=== PATIENT | female | born 1990 | race Caucasian/White ===

== ENCOUNTER 2016-06-17 15:20 | Emergency (ER) | payer OTHER ==
[~2016-06-17 15:20] MED LIST: IBUPROFEN600 MG PO
[2016-06-17 16:11] LABS: HEMOGLOBIN 11.2 gm/dl (12.3-15.3); RED BLOOD COUNT 3.92 M/UL (4.00-5.10); WHITE BLOOD COUNT 7.8 K/UL (4.5-11.0)
[2016-06-17 16:30] LABS: BUN/CREATININE RATIO 15 (0-10)
[2016-11-22] MEDS ORDERED: NORCO 5-325 TA1 EACH PO (17:03)
== END 2016-06-17 21:48 | disposition left against medical advice (07) ==
LOC: ER1 15:20
PROVIDERS: Emergency Medicine
DX: O99.89 Other specified diseases and conditions complicating pregnancy, childbirth and the puerperium (principal); R07.81 Pleurodynia; Z3A.17 17 weeks gestation of pregnancy
CPT/HCPCS: 36415; 71020; 80053; 82150; 82550; 82553; 83690; 83874; 84484; 84702; 85025; 85379; 93005; 93970; 99285; J7030

== ENCOUNTER 2016-06-19 09:39 | Emergency (ER) | payer OTHER ==
[2016-06-19 10:53] LABS: HEMOGLOBIN 10.7 gm/dl (12.3-15.3); RED BLOOD COUNT 3.78 M/UL (4.00-5.10); WHITE BLOOD COUNT 7.8 K/UL (4.5-11.0)
[2016-06-19 11:16] LABS: BUN/CREATININE RATIO 8 (0-10)
[2016-11-22] MEDS ORDERED: NORCO 5-325 TA1 EACH PO (17:03)
== END 2016-06-19 15:57 | disposition home or self-care (01) ==
LOC: ER1 09:39
PROVIDERS: Emergency Medicine
DX: O99.89 Other specified diseases and conditions complicating pregnancy, childbirth and the puerperium (principal); R07.89 Other chest pain; R06.02 Shortness of breath; O21.9 Vomiting of pregnancy, unspecified; Z3A.17 17 weeks gestation of pregnancy
CPT/HCPCS: ECHO; 36415; 80053; 82550; 82553; 83874; 84484; 85025; 85379; 93005; 93306; 99285; J7050; Q9963

== ENCOUNTER → 2020-12-04 | Outpatient (CLI) | payer OTHER ==
[~2020-12-04] MED LIST changes: +NORCO 5-325 TA1 EACH PO
== END ==
LOC: KOH-I 11:00
DX: R05 Cough (principal)
CPT/HCPCS: 71046

== ENCOUNTER → 2021-08-20 | Outpatient (CLI) | payer MEDICARE, OTHER | LOC: KOH-I 15:53 | DX: R22.32 Localized swelling, mass and lump, left upper limb (principal) | CPT/HCPCS: 76882 ==